=== PATIENT | male | born 1985 | race Caucasian/White ===

== ENCOUNTER 2024-03-11 18:22 | Emergency (ER) | payer OTHER, SELFPAY ==
[2024-03-11 18:22] VITALS: BMI 25.5
[2024-03-11 18:29] VITALS: BP 125/73
[2024-03-11 20:23] VITALS: BP 117/78
--- NOTE | 2024-03-11 20:31 | ED.GENMED ---
History of Present Illness
General
Chief Complaint: DVT/Possible Blood Clot
Source: patient
Time Seen by Provider: 03/11/24 20:22
History of Present Illness
History of Present Illness:
38-year-old male with no significant past medical history presenting to the emergency department for evaluation of right lower extremity pain and edema of the right lower leg/gastrocnemius for the last 2 days. Patient was recently on a work trip in
[place] and drove back home and was concerned for possible DVT. Denies any known history of trauma but does state he exercises relatively regularly but cannot remember injuring the right leg. Denies any paresthesias/color changes/numbness. Denies
any cigarette or tobacco history. No family history of bleeding or clotting disorders. No chest pain, shortness of breath or any other symptoms.
Past History
Past History
ED Past Medical History: None
ED Past Surgical History: Orthopedic
Social History
Tobacco: Non-smoker
Alcohol: Occasional
Drug: None
Personal:
Living: with family
Employment: Employed
Review of Systems
Review of Systems
All Other Systems: ROS reviewed and negative except as documented in HPI and ROS
Phy Exam
Physical Exam
Physical Exam:
GENERAL: Alert , in no apparent distress
EYE: conjunctiva clear
Head: Normocephalic atraumatic
NECK: Supple,
ENT: mmm.
LUNGS: no acute respiratory distress
NEUROLOGICAL: Alert and oriented
SKIN: Warm and dry, skin intact. No overlying erythema
MUSCULOSKELETAL: Right lower extremity has no overlying skin color changes however there is some mild edema compared to the left lower extremity around the mid gastric medius with tenderness in this area that extends toward the calcaneal tendon.
Patient has easily palpable pedal and tibial pulses bilateral. Cap refill less than 2 seconds and sensation is grossly intact and equal to light touch bilaterally
PSYCH: Normal and appropriate interaction.
Scores
Heart Failure Risk
Heart Failure Risk Score: Not Applicable
Heart Score for Chest Pain Patients
STEMI patient?: Not applicable
Withdrawal Assessment of Alcohol
Withdrawal Assessment Completed?: Not applicable
Course
Orders/Labs/Results
Orders:
Orders
03/11/24 18:33
Legs, Right US [US Periph Venous LOWER Ext RT] Urgent
Comment:
Reason For Exam: right calf swelling and pain
Vital Signs
Initial and Last Documented VS:
Initial Vital Signs
Temp Pulse Resp BP Pulse Ox
97.9 F 73 18 125/73 98
03/11/24 18:29 03/11/24 18:29 03/11/24 18:29 03/11/24 18:29 03/11/24 18:29
Last Documented Vital Signs
Temp Pulse Resp BP Pulse Ox
98.5 F 53 11 117/78 99
03/11/24 20:00 03/11/24 20:24 03/11/24 20:24 03/11/24 20:23 03/11/24 20:24
MDM/Problems Addressed
Differential Diagnosis Includes:
Muscle strain, DVT, tendinitis, no signs to suggest infection, no signs or risk factors for peripheral vascular or peripheral arterial disease
MDM/Problems Addressed:
38-year-old male presenting emergency department for evaluation of right lower extremity pain with concern for DVT given recent prolonged travel. Patient without risk factors for peripheral vascular or arterial disease. Is intact and equal pulses
bilaterally. No signs of infection. There is some mild edema and tenderness over the gastrocnemius that extends towards the calcaneal tendon is a possibility for tendinitis. Will check ultrasound. Disposition pending
*Radiology
Radiology exam reviewed: radiology read reviewed
*Pulse Oximetry
Patient hypoxic: no
*Critical Care Note
Total Time (30-74mins, 75-104mins- exclusive of procedures): Not Applicable
Patient Management
Escalation/DeEscalation of care consider admission/obs:
Patient's ultrasound negative for DVT. Provided with printout of report. Follow-up with primary care provider. 5 to 7 days of NSAIDs as needed. Aware of return precautions.
ED Attending Note
-
Portions of this chart may have been created with voice recognition software.� Occasional wrong word or��sound alike� substitutions may have occurred due to the inherent limitations of voice recognition software.
Discharge Plan
Departure
Patient Disposition: Home (Routine Discharge)
Date of Disposition: 03/11/24
Time of Disposition: 20:31
Patient with high blood pressure during this ER visit?: No
Discharge Problem:
Pain in right lower leg
Instructions: Tendinopathy (DC)
Interventions
Interventions:
*Risk Screen - Suicide Last Done: 03/11/24 18:29
*General Assessment Last Done: 03/11/24 18:29
*Neglect/Abuse Screening Last Done: 03/11/24 18:29
ED- Fall Risk Assessment Last Done: 03/11/24 20:25
*ED COVID-19 Vaccine History Last Done: 03/11/24 20:25
*Nursing Disposition Last Done: 03/11/24 20:34
ED- Cardiac Assessment Last Done: 03/11/24 20:25
ED- Pulmonary Assessment Last Done: 03/11/24 20:25
ED-Peripheral Vascular Assessment Last Done: 03/11/24 20:25
ED-Skin Assessment Last Done: 03/11/24 20:25
Discharge Date and Time
Discharge Date/Time: 03/11/24 20:41
Print Language: LIBYAN
== END 2024-03-11 20:41 | disposition home or self-care (01) ==
LOC: EMR 18:22
PROVIDERS: EMERGENCY PHYSICIAN Student in an Organized Health Care Education/Training Program
DX: M79.661 Pain in right lower leg (principal); R60.0 Localized edema
CPT/HCPCS: 99284; 93971